=== PATIENT | female | born 1990 | race Caucasian/White ===

== ENCOUNTER 2017-05-15 14:55 | Inpatient (IN) | payer OTHER ==
[~2017-05-15] VITALS: Ht 154.9 cm; Wt 69.5 kg
[2017-05-15] MEDS ORDERED: PRENTAB9 PO (16:16)
[2017-05-15] MEDS: LR 1,000 ML IV SCH (17:14)
--- NOTE | 2017-05-15 17:59 | HPEPDOC ---
Obstetrical History & Physical General Date of Admission May 15, 2017 at 14:55 History of Present Illness 26 yo @ 41+0 by LMP([id number]) and 8+1 on 27SEP2016. BERTO- [id number]. Presents ambulatory from clinic d/t oligohydramnios. Denies DFM, LOF and VB. States she has an occasional CTX. GBS positive. Chief Complaint: Induction of labor (d/t oligohydramnios @ 41+0) Information Provided By: Patient Age: 26 : 2 Term: 0 Pre-term: 0 Abortions: 1 Livin Care Care: Good Care Number of Visits: 11 Dating Final EDC: May 07, 2017 Final EDC for Daily Update: May 07, 2017 Final EDC by: LMP LMP: Jul 31, 2016 1st Trimester Date: Sep 27, 2016 Weeks + Days: 8.1 Estimated Date of Confinement: May 07, 2017 EGA at Admission: 41.0 Antepartum Course Diagnos(e)s NONE Height (inches): 61 Pre- weight (lbs.): 120 Admission Weight (lbs.): 156 Change in Weight (lbs.): 36 Past Medical History Past Obstetrical History : Past Obstetrical History: Multigravida (SAB @ 6 wks in ) 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 Past Medical History Medical History mitral valve prolapse Surgical History: [place] teeth, Other (wrist surgery) Family History Significant Family History: No pertinent family hx Social History Marital Status: Family situation: Spouse/partner home Psychosocial History: No pertinent psych hx * Smoker: non-smoker Alcohol: Denies Drugs: denies Abuse Violence Screening Have you been hit/kicked/slapp: No Have you been sexually assault: No Imunizations Tdap status: current ([id number]) Influenza Status: needs Allergies Coded Allergies: Hydrocodone (Verified Allergy, Unknown, 05/15/17) Medications Scheduled Multivitamins/ ( 27-0.8 mg) 1 Tab Tab, 1 TAB PO DAILY Physical Examination Physical Examination GENERAL: A&O x 3 BREAST: . ABDOMEN: Gravid and non-tender to touch. FETUS: VTX by [place], SVE and US in clinic today HEART RATE: RRR, no r/g LUNGS: CTA EXTREMITIES: No edema. No clonus. DTRs +1 EFW- 3200 grams Laboratory Data 24H LABS Laboratory Tests 2 05/15/17 15:13: Serology Scanned Report Hepatitis B Testing 05/15/17 17:23: CBC/BMP 9.9/12.6/36.8/171 Pertinent Laboratoy Data Blood Type: O+ RBC Antibody Screen: Negative HIV: Negative Hepatitis B: Negative Hepatitis C: Unknown Rapid Plasma Reagin: Nonreactive Rubella: Immune Varicella: Immune Chlamydia/Gonorrhea: Negative Group B Streptococcus: Positive Quad Screen Test: Negative Glucose Tolerance Test: 79 Anatomy Ultrasound Ultrasound Date: Dec 18, 2016 Placenta Location: Posterior Normal Anatomy: Yes Placenta Previa: No Estimated Weight (grams): 304 Steroid Therapy Steroid Therapy: No Vaginal Examination Dilation: Fingertip Effacement: 40-50% Station: -2 Cervical Consistency: Medium Cervical Position: Middle Presentation: Cephalic presentation Position: Vertex (occiput) Assessment Heart Rate (FHR): 120 Variability: Moderate Accelerations: Positive Decelerations: None Tocometer Contractions: Yes Frequency: regular (Q 2-3 min) Duration: less than 90 seconds Strength: palpated as mild, resting tone palp/soft Multi-drug resistant Organism: No history of MDRO Assessment/Plan Assessment 26 yo @ 41+0 by LMP([id number]) and 8+1 on 27SEP2016. BERTO- [id number]. Presents ambulatory from clinic d/t oligohydramnios. Denies DFM, LOF and VB. States she has an occasional CTX. GBS positive. 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 Anticipate Cook Balloon now C-S as appropriate. SHEILA EUBANKS CNM May 15, 2017 17:59
[2017-05-15 18:02] LABS: MEAN CORPUSCULAR HEMOGLOBIN 28.8 pg (27.0-33.0); MEAN CORPUSCULAR HGB CONC 33.8 g/dl (32.0-36.5); PLATELET COUNT, AUTOMATED 177 10^3/uL (150-450); RED CELL DISTRIBUTION WIDTH 12.4 % (11.5-14.5); WHITE BLOOD COUNT 9.2 10^3/uL (4.0-10.0)
[2017-05-15] MEDS ORDERED: OXYTOCIN DRIP 30 UNITS in APPROPRIATE DILUENT 1 EA IV SCH (18:45)
[2017-05-16] VITALS (32 sets, daily range): BP systolic 102–182; BP diastolic 54–133
--- NOTE | 2017-05-16 00:20 | IPNPDOC ---
Text Note Date of Service The patient was seen on 05/16/17. NOTE FHT Cat 1, pit at 5 Cx /-2, vtx well applied FB placed easily a/p: Doing well. Incr pit to reg ctx's per SOP. Check cx 1-2 hrs after FB is out. Sessions VS,Vikki, I+O VSVikki I+O Laboratory Tests 05/15/17 17:51 Red Blood Count 4.73, Mean Corpuscular Volume 85.0, Mean Corpuscular Hemoglobin 28.8, Mean Corpuscular Hemoglobin Concent 33.8, Red Cell Distribution Width 12.4 SESSIONS,CANDICE Matta MD May 16, 2017 00:20
[2017-05-16] MEDS ORDERED: NALBUPHINE HCL 10 MG/ML AMP (J2300) IM ONE (01:30)
[2017-05-16] MEDS ORDERED: PROMETHAZINE INJ 25 MG/ML VIAL (J2550) IV ONE (01:30)
[2017-05-16] MEDS ORDERED: NALBUPHINE HCL 10 MG/ML AMP (J2300) IV ONE (01:30)
[2017-05-16] MEDS ORDERED: PENICILLIN G POTASSIUM IV 5 MU in D5W MINI-BAG PLUS 100 ML IV STA (03:51)
[2017-05-16] MEDS ORDERED: FENTANYL 2MCG/ML ROPIVACAINE 0.2% IN 0.9% NACL 200ML IVBAG As Ordered ONE (06:05)
[2017-05-16] MEDS ORDERED: ONDANSETRON 4MG/2ML VIAL (J2405) IV PRN ×2 (07:15→13:30)
[2017-05-16] MEDS ORDERED: FENTANYL/ROPIVACAINE/NACL BAG 200 ML EPIDURAL SCH (07:15)
[2017-05-16] MEDS ORDERED: EPIDURAL COMMENT XX SCH (07:15)
[2017-05-16] MEDS ORDERED: LACTATED RINGER'S 1000 ML IV PRN (07:15)
[2017-05-16] MEDS ORDERED: diphenhydrAMINE INJ 50MG/ML VIAL (J1200) IV PRN (07:15)
[2017-05-16] MEDS ORDERED: NALOXONE INJ 0.4 MG/1 ML VIAL (J2310) IV PRN (07:15)
[2017-05-16] MEDS ORDERED: EPIDURAL/PCA KEYS XX PRN (07:15)
[2017-05-16] MEDS ORDERED: REFRIGERATOR IV KEYS XX PRN (07:15)
[2017-05-16] MEDS: PENICILLIN G POTASSIUM IV 2.5 MU in D5W 100 ML IV SCH ×2 (07:35→11:31)
[2017-05-16] MEDS: LR 1,000 ML IV SCH (08:49)
[2017-05-16] MEDS: ePHEDrine SULFATE 25 MG/5 ML(5MG/ML) SYRINGE IV PRN ×3 (09:03→09:42)
[2017-05-16] MEDS ORDERED: ACETAMINOPHEN 500 MG TAB PO ONE (11:15)
[2017-05-16] MEDS ORDERED: AMPICILLIN SOD/SULBACTAM SOD 3 GM in D5W MINI-BAG PLUS 100 ML IV SCH (12:00)
[2017-05-16] MEDS ORDERED: OXYTOCIN DRIP 30 UNITS in APPROPRIATE DILUENT 1 EA IV SCH (13:27)
[2017-05-16] MEDS ORDERED: DOCUSATE SODIUM 100 MG CAP PO PRN (13:30)
[2017-05-16] MEDS ORDERED: RHOGAM 300 MCG (1500 IU) INJ (J2790) IM SCH (13:30)
[2017-05-16] MEDS ORDERED: MEASLES,MUMPS,RUBELLA VACCINE INJ (MMR-II) (90707) SC SCH (13:30)
[2017-05-16] MEDS ORDERED: ACETAMINOPHEN TAB 650MG DOSE (2X325MG) PO PRN (13:30)
[2017-05-16] MEDS ORDERED: DIBUCAINE 1% OINTMENT 30GM TOP PRN (13:30)
[2017-05-16 13:39] LABS: CORD GAS ABE V -4.9; CORD GAS HCO3 V 18.7 MEQ/L; CORD GAS O2 SAT V 70.7 %; CORD GAS PCO2 V 30.8 mmHg; CORD GAS PH V 7.4 UNITS; CORD GAS PO2 V 27.8 mmHg; CORD GAS SBC V 19.8 MEQ/L; CORD GAS TCO2 V 19.6 MEQ/L
[2017-05-16 13:42] LABS: CORD GAS ABE A -3.3; CORD GAS HCO3 A 20.9 MEQ/L; CORD GAS O2 SAT A 72.4 %; CORD GAS PCO2 A 35.4 mmHg; CORD GAS PH A 7.39 UNITS; CORD GAS SBC A 21.2 MEQ/L
[2017-05-16] MEDS ORDERED: OXYTOCIN INJ 10 UNITS/ML VIAL (J2590) IV ONE (16:15)
[2017-05-17] MEDS: IBUPROFEN 600 MG TAB PO PRN ×2 (03:06→19:46)
[2017-05-17 06:00] VITALS: BP 91/54
[2017-05-17 07:09] LABS: MEAN CORPUSCULAR HGB CONC 34.3 g/dl (32.0-36.5); MEAN CORPUSCULAR VOLUME 84.5 fl (80.0-96.0); PLATELET COUNT, AUTOMATED 143 10^3/uL (150-450); RED CELL DISTRIBUTION WIDTH 12.7 % (11.5-14.5); WHITE BLOOD COUNT 12.5 10^3/uL (4.0-10.0)
[2017-05-17] MEDS: PRENATAL VITAMINS CHEWABLE TABLET PO SCH (09:12)
--- NOTE | 2017-05-17 16:35 | DN ---
DATE: 05/16/2017 This lady is a 1, para 0 who was admitted for induction of labor, late post term with oligohydramnios and GBS positive. She had an epidural in place. She was diagnosed with chorioamnionitis. Was at full dilatation. Push for prolonged period of time, and there was subsequent tachycardia. No meconium noted and no late decelerations. With epidural in place, over a midline episiotomy delivered a live male , weighing 7 pounds 2 ounces, 3240 grams, of 9 and 9 at one and five, respectfully Dr. Whyte in attendance for resuscitation. Arterial and venous pH were performed. The placenta delivered spontaneously thereafter. Three-vessel cord and membranes and tissues intact. The uterus contracted well down on Pitocin. We did do a midline episiotomy, which was oversewn in the usual fashion with a 2-0 J339. Sphincter evaluation was normal. The rest of the vaginal mucosa was intact. No lacerations to the lateral barnhart. No rectal involvement and no bladder involvement. The patient and baby tolerated the procedure well.
[2017-05-17 19:02] VITALS: BP 121/74
--- NOTE | 2017-05-17 21:19 | IPN ---
DATE: 05/17/2017 day #1. This lady is 26-year-old 2 now para 1 admitted for induction of labor post dates with oligohydramnios. She had a spontaneous vaginal delivery of a live male , 7 pounds 2 ounces, 3240 grams, scores of 9 and 9 at 1 and 5 minutes, respectively. Arterial pH was 7.39, base excess -3.3, venous pH 7.40, base excess -4.9. Admitting hemoglobin 13.6, hematocrit 40.2 and platelets are 177. Discharge hemoglobin 10.8, hematocrit 31.5 and platelets are 143. Vital signs today, blood pressure 91/54, respirations 17, pulse 77, temperature 97.6. We discussed phlebitis, cystitis, mastitis, endometritis, cellulitis, diet, exercise, pain management, perineal, breast and wound care. Patient is anticipating using control pills at her 6-week checkup. Today on examination she is normocephalic, atraumatic. Neck full range of motion. Pupils equally reactive to light. Distal pulses are symmetric. No evidence of DVT, PE or superficial phlebitis. Abdomen is soft. Uterus two below. Lochia is moderate. Four quadrant bowel sounds are noted. Chest is clear bilaterally to bases. No wheezes or rhonchi. No complaints of shortness of breath, dyspnea on exertion. We discussed contraception which she will start at 6-week . In summary we have a term gestation who delivered a live male infant, anxious for discharge tomorrow. Prophylaxis for GBS was appropriate.
[2017-05-18 06:00] VITALS: BP 122/77
[2017-05-18] MEDS: IBUPROFEN 600 MG TAB PO PRN (06:00)
[2017-05-18] MEDS: PRENATAL VITAMINS CHEWABLE TABLET PO SCH (07:53)
[2017-05-18] MEDS ORDERED: IBUP-1114 PO (08:27)
[2017-05-18] MEDS ORDERED: COLA100C5 PO (08:27)
[2017-05-18] MEDS ORDERED: ACET50TA PO (08:27)
[2017-05-18] MEDS ORDERED: DIBU1OIN TOP (08:29)
== END 2017-05-18 10:25 | disposition home or self-care (01) | DRG 775 ==
LOC: M LDI 14:55 → M OBS 05-16 15:10
PROVIDERS: ADMIT Midwife; ATTEND Midwife
PROC: 3E033VJ Introduction of Other Hormone into Peripheral Vein, Percutaneous Approach (ICD-10-PCS; 2017-05-15)
PROC: 10E0XZZ Delivery of Products of Conception, External Approach (ICD-10-PCS; principal; 2017-05-16)
PROC: 0W8NXZZ Division of Female Perineum, External Approach (ICD-10-PCS; 2017-05-16)
PROC: 10907ZC Drainage of Amniotic Fluid, Therapeutic from Products of Conception, Via Natural or Artificial Opening (ICD-10-PCS; 2017-05-16)
DX: O41.03X0 Oligohydramnios, third trimester, not applicable or unspecified (principal); O41.1230 Chorioamnionitis, third trimester, not applicable or unspecified; Z37.0 Single live birth; O48.0 Post-term pregnancy; Z3A.41 41 weeks gestation of pregnancy; O99.824 Streptococcus B carrier state complicating childbirth; Z88.5 Allergy status to narcotic agent; Z79.899 Other long term (current) drug therapy; O76 Abnormality in fetal heart rate and rhythm complicating labor and delivery